=== PATIENT | male | born 1990 | race Asian ===

== ENCOUNTER 2018-06-12 20:27 | Emergency (ER) | payer SELFPAY ==
[2018-06-13 00:58] LABS: ADD UMIC NO; UR AMORPHOUS CRYSTAL FEW /HPF (NONE SEEN); UR ASCORBIC ACID NEGATIVE (NEGATIVE); UR BACTERIA FEW /HPF (NONE SEEN); UR BILIRUBIN (Dip) NEGATIVE (NEGATIVE); UR BLOOD (Dip) NEGATIVE (NEGATIVE); UR CLARITY SLIGHTLY CLOUDY (CLEAR); UR COLOR YELLOW (YELLOW); UR GLUCOSE (Dip) NEGATIVE (NEGATIVE); UR KETONES (Dip) NEGATIVE (NEGATIVE); UR LEUKOCYTE ESTERASE (Dip) NEGATIVE Leu/ul (NEGATIVE); UR NITRITE (Dip) NEGATIVE (NEGATIVE); UR RBC 0 /HPF (0-5); UR SPECIFIC GRAVITY (Dip) 1.017 (1.003-1.030); UR TOTAL PROTEIN (Dip) NEGATIVE (NEGATIVE); UR UROBILINOGEN (Dip) NEGATIVE (NEGATIVE); UR WBC 1 /HPF (0-5)
[2018-06-13] MEDS: METHYLPREDNISOLONE 125 MG INJ IM (01:26)
[2018-06-13] MEDS: DIPHENHYDRAMINE 50 MG INJ IM (01:27)
== END 2018-06-13 01:49 | disposition home or self-care (01) ==
LOC: FTE 06-13 01:49
DX: T78.1XXA Other adverse food reactions, not elsewhere classified, initial encounter (principal); J45.909 Unspecified asthma, uncomplicated; F17.210 Nicotine dependence, cigarettes, uncomplicated; L50.9 Urticaria, unspecified
CPT/HCPCS: 81001; 81003; 96372; 99284-25